=== PATIENT | male | born 1940 | race Caucasian/White ===

== ENCOUNTER 2017-06-01 22:01 | Inpatient (IN) | payer MEDICARE, BC ==
[~2017-06-01] VITALS: Ht 182.9 cm; Wt 109.8 kg
[2017-06-01] MEDS ORDERED: APIX5TAB3 PO (23:41)
[2017-06-01] MEDS ORDERED: LISI2.5T PO (23:41)
[2017-06-01] MEDS ORDERED: MULT-658 PO (23:41)
[2017-06-01] MEDS ORDERED: METO50TA6 PO (23:41)
[2017-06-01 23:45] VITALS: BP 140/73
--- NOTE | 2017-06-01 23:45 | NUR ---
ADMISSION: The patient, NORY MUNGUIA, 77 y/o, M admitted by FREDDY MOLINA MD, was given written information regarding hospital policies, unit procedures and contact persons. Pt a direct admit from [place] [facility], arrived to room 109 via gurney, accompanied by [facility]. Pt is A/Ox3, pleasant. Ambulatory. Pt reports increased thirst and urination over the past week, also notes significant fatigue. Reports no prior diagnosis of diabetes. Pt's son is diabetic and checked his blood sugar on personal glucometer, read as "high." Pt then presented to [place] ED and found to have blood glucose of 590. Received 2 liters IVNS and 5 units of regular insulin prior to transfer. Will consult Nutrition for new onset diabetes. PMH and home meds reviewed with patient. Pt lives at home with who has dementia and he cares for her, but their daughter is with her tonight. Pt is on Eliquis and SCD's ordered for VTE. Box lunch provided. Pt sitting up on bedside with call light in reach. Will monitor. Diabetic education handout given to patient. Valuables were checked and logged. Left in room with patient.
[2017-06-01] MEDS ORDERED: HYDR28OI2 TP (23:56)
[2017-06-02] MEDS ORDERED: INSULIN DETEMIR 300 UNITS/3 ML INSULN.PEN. SQ ONE
[2017-06-02] MEDS ORDERED: INSULIN ASPART 300 UNITS/3 ML INSULN.PEN SQ ONE
[2017-06-02] MEDS: IV NORMAL SALINE 1,000ML 1,000 ML IV SCH ×2 (00:21→13:20)
[2017-06-02] MEDS ORDERED: HYDROCORTISONE 1% TOPICAL CREAM 30GM TUBE. TP PRN (00:45)
[2017-06-02 01:02] LABS: BILIRUBIN,URINE NEG (NEG); CLARITY,URINE CLEAR; COLOR,URINE YELLOW; GLUCOSE,URINE 500 mg/dL (NEG)
[2017-06-02 01:03] LABS: BACTERIA,URINE FEW /HPF (0-FEW); NITRITE,URINE NEG (NEG); RBC,URINE 0 /HPF (0-2); UROBILINOGEN,URINE 0.2 mg/dL (0.2 mg/dL); WBC,URINE 0 /HPF (0-4)
[2017-06-02 06:12] VITALS: BP 160/82
[2017-06-02 06:16] LABS: BASO % 1 % (0-3); EOS # 0.2 x10^3/uL (0.0-0.7); EOS % 4 % (0-3); HEMATOCRIT 39.5 % (39.0-53.0); LYMPH % 42 % (24-48); MEAN CORPUSCULAR HEMOGLOBIN 35 pg (25-35); MEAN CORPUSCULAR HGB CONC 35 g/dL (31-37); MEAN CORPUSCULAR VOLUME 98 fL (79-100); MONO # 0.5 x10^3/uL (0.0-1.1); MONO % 10 % (0-9); NEUT # 2.1 x10^3uL (1.8-7.7); NEUT % 43 % (31-73); PLATELET COUNT 121 x10^3/uL (140-400); RED BLOOD COUNT 4.02 x10^6/uL (4.30-5.70); RED CELL DISTRIBUTION WIDTH 13.6 % (11.5-14.5); WHITE BLOOD COUNT 4.8 x10^3/uL (4.0-11.0)
[2017-06-02 06:27] LABS: ALBUMIN 2.9 g/dL (3.4-5.0); CALCIUM 7.9 mg/dL (8.5-10.1); CREATININE 0.9 mg/dL (0.7-1.3); GFR 81.4; POTASSIUM 3.7 mmol/L (3.5-5.1); TOTAL BILIRUBIN 1.2 mg/dL (0.2-1.0); TOTAL PROTEIN 5.9 g/dL (6.4-8.2)
[2017-06-02] MEDS: APIXABAN 5 MG TABLET. PO SCH ×2 (09:24→20:46)
[2017-06-02] MEDS: LISINOPRIL 2.5 MG TABLET PO SCH ×2 (09:25→20:47)
[2017-06-02] MEDS: MULTIVITAMIN with MINERAL TABLET. PO SCH (09:25)
[2017-06-02] MEDS: METOPROLOL TART IMMED RELEASE 50 MG TABLET PO SCH ×2 (09:26→17:30)
[2017-06-02] MEDS ORDERED: DEXTROSE 50% 25 GM / 50ML DISP.SYRIN. IV PRN (10:15)
[2017-06-02] MEDS: INSULIN DETEMIR 300 UNITS/3 ML INSULN.PEN. SQ SCH ×2 (10:30→20:48)
[2017-06-02 11:38] VITALS: BP 130/83
[2017-06-02] MEDS: INSULIN ASPART 300 UNITS/3 ML INSULN.PEN SQ SCH ×2 (11:59→17:31)
--- NOTE | 2017-06-02 12:46 | NUR ---
Pt is A&Ox4. Denies pain. Interested in learning more about diabetes. Please see doc flowsheet for full assessment. Will continue to monitor.
[2017-06-02 16:12] VITALS: BP 143/74
--- NOTE | 2017-06-02 17:18 | RAD ---
COMPLETE ABDOMINAL ULTRASOUND Clinical History: new onset acute hyperglycemia Comparison: None. Technique: Sonographic examination of the abdomen was performed and multiple grayscale and duplex Doppler static images were obtained. Findings: Exam is technically limited due to patient body habitus. Liver is increased in echogenicity. There is decreased through transmission. The liver measures 19.9 cm. Ultrasound is not sensitive for detecting solid liver lesions. Portal flow is hepatopetal. The common bile duct is normal in caliber, measuring 6 mm in diameter. The gallbladder is not identified. The pancreas is not well visualized due to overlying bowel gas. The right kidney is normal in morphology and echotexture and measures 10.4 cm. The left kidney is normal in morphology and echotexture and measures 13.8 cm. There is a cyst in the lower pole measuring 2.3 x 2 x 2.2 cm. There is no hydronephrosis. The spleen is not enlarged, measuring 12 cm. Visualized portions of the abdominal aorta and IVC appear normal. IMPRESSION: 1. Fatty infiltration of the liver. Hepatomegaly. 2. Gallbladder is not identified. 3. Left lower pole renal cyst.
--- NOTE | 2017-06-02 19:05 | HP ---
ADMIT DATE: 06/01/2017 REASON FOR ADMISSION: New onset of diabetes. HISTORY OF PRESENT ILLNESS: The patient is a 77-year-old gentleman who for the last week has had increased urination, had blood sugar checked at home, was registered to [facility], came in through the Emergency Room at [place], was transferred here ____. The patient was admitted in ER, blood sugar greater than 500 over at the [facility] and the patient was admitted for further evaluation and treatment of his new onset of type 2 diabetes, but by the same token was markedly dehydrated as well. PAST MEDICAL HISTORY: Chronic atrial fibrillation, on Eliquis; hypertension, sleep apnea, uses CPAP; history of diverticulitis. PAST SURGICAL HISTORY: Cholecystectomy, hernia repair x 2, rectal surgery, colon removed 18 inches, bilateral knee replacement. FAMILY HISTORY: Father of lung cancer, mother with breast cancer. ALLERGIES: SULFA AND CODEINE. MEDICATIONS: Lisinopril 2.5 mg daily, Keflex 500 mg 4 times a day, Eliquis 5 mg b.i.d., metoprolol 50 mg 3 times a day, DuoNeb treatments, Breo Ellipta once daily, Temovate ointment p.r.n., hydroxyzine 25 t.i.d. SOCIAL HISTORY: No smoking presently. Quit smoking in 1969. No alcohol. Lives at home with his . REVIEW OF SYSTEMS: Recent weight loss, increased urination. Denies chest pain or shortness of breath. Denies headaches, visual changes, blurred vision, or double vision. Denies any melena, hematochezia, or hematemesis. Neurologically intact. PHYSICAL EXAMINATION: GENERAL: This is a pleasant white male, moderate amount of distress. VITAL SIGNS: Blood pressure 140/70, respiratory rate 20, pulse 62, afebrile. HEENT: The patient's head was atraumatic, normocephalic. Eyes were PERRLA without jaundice. The mouth and throat were normal. NECK: Supple, without JVD or carotid bruits. No thyromegaly. LUNGS: Diminished throughout, poor movement of air, but clear. CARDIOVASCULAR: Irregularly irregular rhythm. ABDOMEN: Soft, protuberant, nontender. No rebounding or guarding. Positive bowel sounds. No hepatosplenomegaly was noted. EXTREMITIES: No clubbing, cyanosis, nor edema. NEUROLOGIC: The patient was alert and oriented x 3. Speech fluent, spontaneous, and appropriate. Cranial nerves 2-12 are grossly intact. The patient had an ultrasound that showed fatty liver, hepatomegaly, but no obvious problems noted in the pancreatic axis there. LABORATORY DATA: As noted. The sugars at [facility] were closed over 500. He was given insulin by the time. It had come down to 200 here at [facility]. BUN and creatinine were basically stable. Albumin slightly low at 2.9. IMPRESSION: New onset of type 2 diabetes, severe hyperglycemia, [id number] protein malnutrition. PLAN: The patient will be admitted for further evaluation, IV fluids. Diabetic education and further evaluation as indicated. FREDDY MOLINA MD DR: SERAFIN/francheska JOB#: [id number] / [id number]
[2017-06-02 19:40] VITALS: BP 140/77
[2017-06-02 22:41] VITALS: BP 142/86
[2017-06-03] MEDS: IV NORMAL SALINE 1,000ML 1,000 ML IV SCH (01:33)
[2017-06-03] MEDS ORDERED: ACETAMINOPHEN 325 MG TABLET PO PRN (01:45)
[2017-06-03 06:22] VITALS: BP 123/73
[2017-06-03 07:14] LABS: BASO % 1 % (0-3); EOS # 0.2 x10^3/uL (0.0-0.7); EOS % 4 % (0-3); HEMATOCRIT 38.5 % (39.0-53.0); HEMOGLOBIN 13.6 g/dL (13.0-17.5); LYMPH # 1.8 x10^3/uL (1.0-4.8); LYMPH % 40 % (24-48); MEAN CORPUSCULAR HEMOGLOBIN 35 pg (25-35); MEAN CORPUSCULAR HGB CONC 35 g/dL (31-37); MEAN CORPUSCULAR VOLUME 99 fL (79-100); MONO # 0.4 x10^3/uL (0.0-1.1); MONO % 8 % (0-9); NEUT # 2.1 x10^3uL (1.8-7.7); NEUT % 48 % (31-73); PLATELET COUNT 128 x10^3/uL (140-400); RED BLOOD COUNT 3.89 x10^6/uL (4.30-5.70); RED CELL DISTRIBUTION WIDTH 13.4 % (11.5-14.5); WHITE BLOOD COUNT 4.5 x10^3/uL (4.0-11.0)
[2017-06-03 07:21] LABS: ALBUMIN 2.7 g/dL (3.4-5.0); ALBUMIN/GLOBULIN RATIO 0.9 (1.0-1.7); CALCIUM 8.1 mg/dL (8.5-10.1); CREATININE 0.8 mg/dL (0.7-1.3); GFR 93.3; POTASSIUM 3.9 mmol/L (3.5-5.1); TOTAL BILIRUBIN 1.3 mg/dL (0.2-1.0); TOTAL PROTEIN 5.6 g/dL (6.4-8.2)
[2017-06-03] MEDS: MULTIVITAMIN with MINERAL TABLET. PO SCH (08:26)
[2017-06-03] MEDS: LISINOPRIL 2.5 MG TABLET PO SCH (08:27)
[2017-06-03] MEDS: METOPROLOL TART IMMED RELEASE 50 MG TABLET PO SCH (08:27)
[2017-06-03] MEDS: APIXABAN 5 MG TABLET. PO SCH (08:27)
[2017-06-03] MEDS: INSULIN ASPART 300 UNITS/3 ML INSULN.PEN SQ SCH ×2 (08:34→11:30)
[2017-06-03] MEDS: INSULIN DETEMIR 300 UNITS/3 ML INSULN.PEN. SQ SCH (08:36)
[2017-06-03] MEDS ORDERED: diphenhydrAMINE HCL 25 MG CAPSULE PO PRN (09:45)
[2017-06-03] MEDS ORDERED: INSU100I17 SQ (10:22)
[2017-06-03] MEDS ORDERED: INSU100I27 SQ (10:22)
--- NOTE | 2017-06-03 11:39 | DS ---
DATE OF DISCHARGE: 06/03/2017 HOSPITAL COURSE: The patient is a 77-year-old male with new onset of type 2 diabetes, poorly controlled, 1-week history of not feeling well, increased urination who came in. Sugars were over 500 at the [place] ER, transferred over here because they were on diversion. The patient himself is resting fairly comfortably, making good progress. Sugars are down to low 200. Received diabetic education. The patient otherwise made excellent progress. He was discharged home and he will be followed up as an outpatient. IMPRESSION: New onset of type 2 diabetes, poorly controlled. The patient will be discharged home on insulin, given diabetic diet, given information about diabetes, diet, insulin care, and he will follow up in 7-10 days or sooner as needed. FREDDY MOLINA MD DR: SERAFIN/francheska JOB#: [id number] / [id number]
[2017-06-03 11:53] VITALS: BP 122/79
--- NOTE | 2017-06-03 16:24 | NUR ---
Pt is discharging. RN spent 2 hours with patient providing education about diabetes, glucose checking, nutrition and insulin administration. Pt has follow up with Dr Navarro on Sunday. Pt is borrowing his on in laws BG machine until he has a follow up with Dr Navarro and gets a meter. Scripts given to patient for levemir and novolog, pens used here given to patient along with needles. IV out.
== END 2017-06-03 13:30 | disposition home or self-care (01) | DRG 638 ==
LOC: 1 SOUTH 23:12
PROVIDERS: ADMIT Family Medicine; ATTEND Family Medicine
DX: E11.65 Type 2 diabetes mellitus with hyperglycemia (principal); E44.0 Moderate protein-calorie malnutrition; I48.2 Chronic atrial fibrillation; Z99.81 Dependence on supplemental oxygen; E86.0 Dehydration; G47.30 Sleep apnea, unspecified; I10 Essential (primary) hypertension; Z68.32 Body mass index [BMI] 32.0-32.9, adult; Z96.653 Presence of artificial knee joint, bilateral; Z79.4 Long term (current) use of insulin; Z80.1 Family history of malignant neoplasm of trachea, bronchus and lung; Z80.3 Family history of malignant neoplasm of breast; Z87.891 Personal history of nicotine dependence; Z88.2 Allergy status to sulfonamides; Z88.8 Allergy status to other drugs, medicaments and biological substances; Z90.49 Acquired absence of other specified parts of digestive tract
CPT/HCPCS: 36415; 76700; 80053; 81001; 82947; 85025; J1815; J7030